=== PATIENT | male | born 1980 | race Two or more races ===

== ENCOUNTER 2024-05-28 14:41 | Emergency (ER) | payer OTHER ==
[~2024-05-28] VITALS: Ht 175.3 cm; Wt 75.0 kg
[2024-05-28 14:54] VITALS: O2SAT 97
[2024-05-28 15:05] VITALS: BP 137/92; PULSE 107; RESP 18; TEMP 98.5; O2SAT 99
[2024-05-28 15:56] LABS: BASOPHILS % 0.5 % (0.0-2.0); EOSINOPHILS % 0.3 % (0.0-5.0); HEMATOCRIT. 44.5 % (42.0-52.0); HEMOGLOBIN. 14.9 g/dL (14.0-18.0); LYMPHOCYTES % 20.2 % (20.0-50.0); MEAN CORPUSCULAR HEMOGLOBIN 28.7 pg (28.0-32.0); MEAN CORPUSCULAR HGB CONC 33.5 g/dL (31.0-37.0); MEAN CORPUSCULAR VOLUME 85.7 fL (80.0-94.0); MEAN PLATELET VOLUME 8.4 fl (7.4-10.4); MONOCYTES % 4.9 % (2.0-8.0); NEUTROPHILS % 74.1 % (40.0-76.0); PLATELET 298 x1000/uL (130-400); RED CELL DISTRIBUTION WIDTH 13.5 % (11.6-14.6)
[2024-05-28 16:03] LABS: CHLORIDE 105 mEq/L (98-107); POTASSIUM 3.8 mEq/L (3.5-5.1); SODIUM 140 mEq/L (136-145)
[2024-05-28 16:04] LABS: CALCIUM 10.2 mg/dL (8.7-10.4); CARBON DIOXIDE 29 mEq/L (21-32)
[2024-05-28 16:09] LABS: GLUCOSE 105 mg/dL (70-105); UREA NITROGEN BLOOD 8 mg/dL (9-23)
[2024-05-28] MEDS ORDERED: ACETAMINOPHEN 325MG TABLET PO ONE (16:15)
[2024-05-28 16:56] LABS: TROPONIN I HIGH SENSITIVITY < 4 ng/L (3.0-53)
[2024-05-28] MEDS ORDERED: ACET-2708 MT (17:45)
[2024-05-28] MEDS: ACETAMINOPHEN 325MG TABLET PO NR (20:10)
== END 2024-05-28 20:29 | disposition home or self-care (01) ==
LOC: ER 14:41
DX: R51.9 Headache, unspecified (principal); R07.89 Other chest pain; I10 Essential (primary) hypertension; R00.0 Tachycardia, unspecified
CPT/HCPCS: 80048; 85025; 84484; 36415; 71045; 70450; 93005; 99285; Z7610; C1893